=== PATIENT | female | born 1975 | race African-American/Black ===

== ENCOUNTER 2016-11-13 20:10 | Emergency (ER) | payer MEDICAID ==
[~2016-11-13] VITALS: Ht 170.2 cm; Wt 86.2 kg
[~2016-11-13 20:10] MED LIST: ABILIFY; PROP20TA7; TAP; ZOLOFT
[2016-11-13 20:13] VITALS: BP 141/93
== END 2016-11-13 23:00 | disposition left against medical advice (07) ==
LOC: ER 20:20
DX: Z53.21 Procedure and treatment not carried out due to patient leaving prior to being seen by health care provider (principal)

== ENCOUNTER 2018-05-26 08:55 | Emergency (ER) | payer MEDICAID ==
[~2018-05-26] VITALS: Ht 170.2 cm; Wt 72.0 kg
[2018-05-26 09:03] VITALS: BP 112/65
== END 2018-05-26 12:24 | disposition left against medical advice (07) ==
LOC: ER 08:55
DX: R50.9 Fever, unspecified (principal); I10 Essential (primary) hypertension; E05.90 Thyrotoxicosis, unspecified without thyrotoxic crisis or storm; F12.10 Cannabis abuse, uncomplicated; F15.10 Other stimulant abuse, uncomplicated; J45.909 Unspecified asthma, uncomplicated; Z88.8 Allergy status to other drugs, medicaments and biological substances
CPT/HCPCS: 99283